=== PATIENT | female | born 1980 | race Caucasian/White ===

== ENCOUNTER → 2017-02-09 | Outpatient (CLI) | payer MEDICAID ==
[~2017-02-09] MED LIST: BACTRIM DS 8001 TAB PO; CELEXA 20MG20 MG/TAB PO; CELEXA10 MG PO; CEPHALEXIN500 M1 PO; DESYREL 50MG50 MG PO; FIORICET 325 MG1 TA1 PO; FLAGYL500 MG PO; FLEXERIL 1010 MG/TAB PO; LEVAQUIN 750MG750 M1 PO; LORTAB 5/500 501 TAB PO; LYRICA 75MG CAP75 MG PO; NAPROSYN500 MG PO; NEURONTIN300 MG/CAP PO; NEXIUM 20MG20 MG PO; NEXIUM 40MG40 MG PO; NORCO 325 MG-51 TAB PO; NORCO 325 MG-7.1 TAB PO; PEPCID 20MG TAB20 MG PO; PHENERGAN 25 TA25 MG PO; PRILOSEC 20MG20 MG PO; VIT D3; ZANTAC 7575 MG PO; ZOFRAN 4MG T4 MG/TAB PO
== END ==
LOC: COL.RAD 08:08
DX: R11.2 Nausea with vomiting, unspecified (principal); R19.7 Diarrhea, unspecified; R10.84 Generalized abdominal pain
CPT/HCPCS: A9541

== ENCOUNTER 2017-11-03 21:22 | Emergency (ER) | payer MEDICAID ==
[~2017-11-03] VITALS: Ht 157.5 cm; Wt 47.7 kg
[2017-11-03 21:27] VITALS: BP 96/53; TEMP 98.5
[2017-11-03 23:46] VITALS: PULSE 88
== END 2017-11-03 23:49 | disposition home or self-care (01) ==
LOC: COL.ER 21:22
DX: J11.1 Influenza due to unidentified influenza virus with other respiratory manifestations (principal); F17.210 Nicotine dependence, cigarettes, uncomplicated

== ENCOUNTER 2018-02-08 16:40 | Emergency (ER) | payer MEDICAID ==
[~2018-02-08] VITALS: Ht 157.5 cm; Wt 45.0 kg
[2018-02-08 16:43] VITALS: BP 119/53; PULSE 77; TEMP 97.5
== END 2018-02-08 17:08 | disposition home or self-care (01) ==
LOC: COL.ER 16:40
DX: S00.06XA Insect bite (nonvenomous) of scalp, initial encounter (principal); F17.210 Nicotine dependence, cigarettes, uncomplicated; W57.XXXA Bitten or stung by nonvenomous insect and other nonvenomous arthropods, initial encounter

== ENCOUNTER 2019-02-06 19:44 | Emergency (ER) | payer MEDICAID ==
[~2019-02-06] VITALS: Ht 157.5 cm; Wt 50.0 kg
[2019-02-06 19:58] VITALS: BP 93/63; TEMP 98.4
[2019-02-06 23:34] VITALS: PULSE 66
== END 2019-02-06 23:34 | disposition home or self-care (01) ==
LOC: COL.ER 19:44
DX: J06.9 Acute upper respiratory infection, unspecified (principal); H00.016 Hordeolum externum left eye, unspecified eyelid; M79.7 Fibromyalgia; F17.210 Nicotine dependence, cigarettes, uncomplicated; Z90.49 Acquired absence of other specified parts of digestive tract; Z90.89 Acquired absence of other organs

== ENCOUNTER 2019-07-26 11:37 | Emergency (ER) | payer MEDICAID ==
[~2019-07-26] VITALS: Ht 157.5 cm; Wt 47.7 kg
[2019-07-26 11:44] VITALS: BP 111/64; PULSE 70; TEMP 97.6
[2019-07-26] MEDS ORDERED: PHENERGAN 25 TA25 MG PO (12:01)
== END 2019-07-26 13:18 | disposition left against medical advice (07) ==
LOC: COL.ER 11:37
DX: R07.89 Other chest pain (principal); R42 Dizziness and giddiness

== ENCOUNTER 2020-08-09 18:54 | Emergency (ER) | payer MEDICAID ==
[~2020-08-09] VITALS: Ht 157.5 cm; Wt 45.5 kg
[2020-08-09 18:59] VITALS: TEMP 97.8
[2020-08-09] MEDS ORDERED: ULTRAM 50MG TAB50 MG PO (20:26)
[2020-08-09] MEDS ORDERED: FLEXERIL 1010 MG/TAB PO (20:26)
[2020-08-09 20:46] VITALS: BP 94/57; PULSE 69
== END 2020-08-09 20:45 | disposition home or self-care (01) ==
LOC: COL.ER 18:54
DX: S13.4XXA Sprain of ligaments of cervical spine, initial encounter (principal); R40.2410 Glasgow coma scale score 13-15, unspecified time; F32.9 Major depressive disorder, single episode, unspecified; Z87.891 Personal history of nicotine dependence; V89.2XXA Person injured in unspecified motor-vehicle accident, traffic, initial encounter

== ENCOUNTER 2021-01-17 14:30 | Outpatient (RCR) | payer MEDICAID ==
[~2021-01-17 14:30] MED LIST changes: +EFFEXOR 50M50 MG/TAB PO; +ULTRAM 50MG TAB50 MG PO
== END 2021-03-25 | disposition still patient (30) ==
LOC: MKS.ESL.PT
DX: M75.41 Impingement syndrome of right shoulder (principal)